=== PATIENT | male | born 1995 | race Caucasian/White ===

== ENCOUNTER 2023-12-27 20:12 | Inpatient (IN) | payer OTHER ==
[2023-12-27 21:06] VITALS: BMI 23.8
[2023-12-27] MEDS ORDERED: MAG HYDROX/AL HYDROX/SIMETH 30 ML UNIT-DOSE CUP PO PRN (21:45)
[2023-12-27] MEDS ORDERED: DICYCLOMINE HCL 10 MG CAPSULE PO PRN (21:45)
[2023-12-27] MEDS ORDERED: ACETAMINOPHEN 325 MG TABLET (FP) PO PRN (21:45)
[2023-12-27] MEDS ORDERED: BISMUTH SUBSALICYLATE 524 MG/30 ML PO PRN (21:45)
[2023-12-27] MEDS ORDERED: IBUPROFEN 600 MG TABLET (FP) PO PRN (21:45)
[2023-12-27] MEDS ORDERED: IBUPROFEN 400 MG TABLET (FP) PO PRN (21:45)
[2023-12-27] MEDS ORDERED: LOPERAMIDE HCL 2 MG CAPSULE PO PRN (21:45)
[2023-12-27] MEDS ORDERED: BENZOCAINE/MENTHOL (CHLORASEPTIC ) LOZENGE MM PRN (21:45)
[2023-12-27] MEDS ORDERED: guaiFENesin 600 MG TABLET.ER (FP) PO PRN (21:45)
[2023-12-27] MEDS ORDERED: BENZONATATE 200 MG CAPSULE PO PRN (21:45)
[2023-12-27] MEDS: THIAMINE 100 MG TABLET PO SCH (22:34)
[2023-12-27] MEDS: hydrOXYzine PAMOATE 25 MG CAPSULE (FP) PO PRN (22:34)
[2023-12-27] MEDS: MELATONIN 5 MG TABLETS PO SCH (22:34)
[2023-12-28] MEDS: PRENATAL VITAMINS W/ FOLIC ACID TABLET (FP) PO SCH (10:06)
[2023-12-28] MEDS ORDERED: chlordiazePOXIDE HCL 25 MG CAPSULE PO PRN (10:41)
[2023-12-28 11:40] LABS: HEMATOCRIT 42.4 % (35.4-49); HEMOGLOBIN 14.4 GM/dL (11.7-16.9); MCH 31.6 pg (25.7-33.7); MCHC 33.9 g/dl (32.0-35.9); MEAN CELL VOLUME 93.3 fl (80-96); MEAN PLT VOLUME 8.3 fl (7.5-11.1); PLATELET COUNT 206 10^3/uL (134-434); RBC 4.54 M/mm3 (4.00-5.60); RDW 13.1 % (11.9-15.9); WHITE BLOOD COUNT 8.8 K/mm3 (4.0-10.0)
[2023-12-28 11:41] LABS: POTASSIUM 3.6 mmol/L (3.5-5.1)
[2023-12-28 11:43] LABS: CALCIUM 9.5 mg/dL (8.5-10.1)
[2023-12-28 11:46] LABS: BLOOD UREA NITROGEN 14.4 mg/dL (7-18); CREATININE 1.1 mg/dL (0.55-1.3)
[2023-12-28 11:48] LABS: BILIRUBIN,TOTAL 0.9 mg/dL (0.2-1); TOT PROT 6.7 g/dl (6.4-8.2)
[2023-12-28] MEDS: chlordiazePOXIDE HCL 25 MG CAPSULE PO SCH (11:51)
[2023-12-29] MEDS: ONDANSETRON *ODT* 4 MG TABLET SL PRN (10:09)
[2023-12-29] MEDS: METHOCARBAMOL 500 MG TABLET PO PRN (10:10)
[2023-12-30] MEDS: chlordiazePOXIDE HCL 25 MG CAPSULE PO SCH (05:32)
[2023-12-30] MEDS: MAGNESIUM HYDROX 2400MG/30ML ORAL SUSPENSION 30 ML CUP PO PRN (17:27)
[2023-12-30] MEDS: POLYETHYLENE GLYCOL (HEALTHYLAX) 3350 17 GM PACKET PO PRN (22:10)
[2023-12-31] MEDS ORDERED: chlordiazePOXIDE HCL 10 MG CAPSULE PO PRN
[2023-12-31] MEDS: chlordiazePOXIDE HCL 10 MG CAPSULE PO SCH (05:31)
[2023-12-31] MEDS: BISACODYL 5 MG TABLET.DR (FP) PO ONE (14:25)
[2024-01-01] MEDS: chlordiazePOXIDE HCL 10 MG CAPSULE PO SCH (05:35)
[2024-01-02] MEDS: chlordiazePOXIDE HCL 10 MG CAPSULE PO ONE (05:34)
[2024-01-02 09:07] VITALS: RESP 18
[2024-01-02 13:05] VITALS: BP 108/66; PULSE 62; TEMP 97.7
== END 2024-01-02 12:40 | disposition other institution (70) | DRG 774 ==
LOC: YASAS 20:12 → Y3N 22:11
PROVIDERS: ADMIT Allergy & Immunology; ATTEND Surgery
PROC: HZ2ZZZZ Detoxification Services for Substance Abuse Treatment (ICD-10-PCS; principal; 2023-12-27)
DX: F10.230 Alcohol dependence with withdrawal, uncomplicated (principal); F14.20 Cocaine dependence, uncomplicated; F12.10 Cannabis abuse, uncomplicated; F32.A Depression, unspecified
CPT/HCPCS: 36415; 80053; 80305; 80307; 85027; 86780; 87811; 93005; 93010; Q0162

== ENCOUNTER 2024-01-02 12:40 | Inpatient (IN) | payer OTHER ==
[2024-01-02] MEDS ORDERED: BENZOCAINE/MENTHOL (CHLORASEPTIC ) LOZENGE MM PRN (13:15)
[2024-01-02] MEDS ORDERED: BENZONATATE 200 MG CAPSULE PO PRN (13:15)
[2024-01-02] MEDS ORDERED: LOPERAMIDE HCL 2 MG CAPSULE PO PRN (13:15)
[2024-01-02] MEDS ORDERED: IBUPROFEN 600 MG TABLET (FP) PO PRN (13:15)
[2024-01-02] MEDS ORDERED: NALOXONE (NARCAN) HCL 4 MG/0.1 ML SPRAY NS PRN (13:15)
[2024-01-02] MEDS ORDERED: MAG HYDROX/AL HYDROX/SIMETH 30 ML UNIT-DOSE CUP PO PRN (13:15)
[2024-01-02] MEDS ORDERED: ACETAMINOPHEN 325 MG TABLET (FP) PO PRN (13:15)
[2024-01-02] MEDS ORDERED: IBUPROFEN 400 MG TABLET (FP) PO PRN (13:15)
[2024-01-02] MEDS ORDERED: POLYETHYLENE GLYCOL (HEALTHYLAX) 3350 17 GM PACKET PO PRN (13:15)
[2024-01-02] MEDS ORDERED: guaiFENesin 600 MG TABLET.ER (FP) PO PRN (13:15)
[2024-01-02] MEDS ORDERED: NALOXONE HCL 0.4 MG/ML VIAL IVPUSH PRN (13:15)
[2024-01-02 13:21] VITALS: RESP 16
[2024-01-02] MEDS: MELATONIN 5 MG TABLETS PO SCH (21:23)
[2024-01-02] MEDS: THIAMINE 100 MG TABLET PO SCH (21:23)
[2024-01-02] MEDS: METHOCARBAMOL 500 MG TABLET PO PRN (21:23)
[2024-01-02] MEDS: hydrOXYzine PAMOATE 25 MG CAPSULE (FP) PO PRN (21:23)
[2024-01-03] MEDS: PRENATAL VITAMINS W/ FOLIC ACID TABLET (FP) PO SCH (10:11)
[2024-01-03 15:59] LABS: HIV INTERPRETATION NEGATIVE (NEGATIVE)
[2024-01-03] MEDS: MAGNESIUM HYDROX 2400MG/30ML ORAL SUSPENSION 30 ML CUP PO PRN (16:38)
[2024-01-03] MEDS: SUVOREXANT 10 MG TABLET PO PRN (21:22)
[2024-01-03] MEDS: hydrOXYzine PAMOATE 50 MG CAPSULE (FP) PO PRN (21:23)
[2024-01-04] MEDS: BACLOFEN 10 MG TABLET (FP) PO SCH (10:08)
[2024-01-04] MEDS: LACTULOSE 20 GM/30 ML UDC (FOR ORAL USE ONLY) PO SCH (13:07)
[2024-01-04 23:33] VITALS: BP 139/86; PULSE 66; TEMP 97.7
== END 2024-01-04 23:41 | disposition left against medical advice (07) | DRG 770 ==
LOC: YASAS 12:40 → Y3W 12:41
PROVIDERS: ADMIT Allergy & Immunology; ATTEND Psychiatry & Neurology Pain Medicine
PROC: HZ42ZZZ Group Counseling for Substance Abuse Treatment, Cognitive-Behavioral (ICD-10-PCS; principal; 2024-01-02)
DX: F10.20 Alcohol dependence, uncomplicated (principal); F14.20 Cocaine dependence, uncomplicated; F12.10 Cannabis abuse, uncomplicated; F10.282 Alcohol dependence with alcohol-induced sleep disorder; Z86.59 Personal history of other mental and behavioral disorders; Z72.0 Tobacco use
CPT/HCPCS: 36415; 82140; 86803; 87389; J0475